=== PATIENT | male | born 1995 | race Caucasian/White ===

== ENCOUNTER 2025-10-13 01:08 | Emergency (ER) | payer MEDICAID, SELFPAY ==
[2025-10-13 01:10] VITALS: BMI 23.6
[2025-10-13 01:17] VITALS: BP 146/88; PULSE 109; RESP 20; TEMP 36.8; O2SAT 95
--- NOTE | 2025-10-13 01:26 | XR_ITS ---
EXAMINATION: PA chest single view TECHNIQUE: Upright PA chest single view Date and time: October 13, 2025, 0137 hours INDICATIONS: Coughing 2 weeks. FINDINGS: Normal heart size. Lungs are clear. Osseous structures are intact. IMPRESSION: No active disease
--- NOTE | 2025-10-13 01:27 | PD.EDEPIST ---
ED Epistaxis RME/HPI General Chief complaint: Headache Stated complaint: HEAD PRESSURE, NASAL MUSUC/BLOOD, BLURRY VISION Time Seen by Provider: 10/13/25 01:27 Arrival date/time: 10/13/25 01:08 RME / HPI RME / HPI Narrative: 30-year-old male who smokes cigarettes presents to the ER complaining of left-sided sinus pain as well as nasal congestion, nasal discharge including green mucus and intermittent scant blood when he blows his nose really hard which has been ongoing for the past 2 weeks. Denies any nausea, vomiting, shortness of breath, chest pain, hemoptysis, fever. Related Data Previous Rx's ?Medication ?Instructions ?Recorded cephalexin 500 mg capsule (Keflex) 500 mg PO BID #14 caps 11/12/19 ibuprofen 400 mg tablet 400 mg PO Q6H #30 tabs 11/12/19 clindamycin HCl 150 mg capsule 150 mg PO TID #21 caps 04/27/20 ibuprofen 600 mg tablet 600 mg PO Q8H PRN fever or pain 04/27/20 #30 tabs sulfamethoxazole 800 1 tab PO BID #14 tabs 04/27/20 mg-trimethoprim 160 mg tablet (Bactrim DS) ibuprofen 800 mg tablet 800 mg PO TID PRN pain #30 tabs 05/18/22 albuterol sulfate 90 mcg/actuation 180 mcg inhalation Q6H PRN 12/02/23 breath activated powder shortness of breath or wheezing #1 inhaler,sensor (Proair Digihaler) ea prednisone 50 mg tablet 50 mg PO QDAY #7 tabs 12/02/23 clotrimazole 1 % topical cream 1 applic topical BID #15 grams 05/15/24 Allergies Allergy/AdvReac Type Severity Reaction Status Date / Time No Known Allergies Allergy Verified 10/13/25 01:09 ED Exam Narrative Physical exam: Constitutional: Patient alert and oriented. Well appearing. No acute distress. Not toxic appearing. Head: Normocephalic, atraumatic. Eyes: Periorbital regions bilaterally normal to inspection. Conjunctiva clear bilaterally. Sclera anicteric bilaterally. Pupils equal, round, reactive to light bilaterally. Extraocular movements intact bilaterally. Ears: External ears normal to inspection bilaterally. No mastoid tenderness bilaterally. EAC without edema or exudate bilaterally. TMs without erythema or bulging. Nose: Bilateral intranasal mucosa with erythema. Positive tenderness to palpation to left maxillary sinus. Mouth/Throat: Mucous membranes moist. No stridor or muffled voice. Uvula midline. Rise and fall of soft palate normal. No tonsillar edema or exudate. No peritonsillar fullness. No trismus. Handling secretions without difficulty. Airway widely patent. Neck: Supple. Trachea midline. No JVD. No nuchal rigidity. No midline tenderness or step-offs. Normal range of motion. No anterior cervical lymphadenopathy. Respiratory: Normal effort. No accessory muscle use or respiratory distress. Lungs clear to auscultation bilaterally without rhonchi, wheezes, or crackles. Cardiovascular: RRR. Normal S1/S2. No murmurs or rubs. Radial pulses intact bilaterally. Abdomen: Soft. Non-distended. Non-tender throughout. No pulsatile mass. No guarding or rebound. Negative Metz?s sign. Negative McBurney?s point tenderness. Negative Rovsing?s. Back: No midline tenderness or step-offs. No CVA tenderness to palpation bilaterally. Upper Extremities: No gross deformities. Lower Extremities: No gross deformities. No edema or calf tenderness. Neuro: Speech normal. No gross motor or sensory deficits to upper or lower extremities bilaterally. GCS 15. CN II?XII grossly intact. Skin: Warm, dry, normal color. Psych: Normal affect. Cooperative. Normal insight. Course Quality Measures none Orders Category Date Time Status XR chest 1V portable Stat Exams 10/13/25 01:26 Taken CBC [CBC] Stat Lab 10/13/25 01:33 Completed CMP [Comprehensive Metabolic Panel] Stat Lab 10/13/25 01:33 Completed Acetaminophen Tab [Tylenol Tab] Med 10/13/25 01:27 Discontinued 650 mg PO X1 ONE Ibuprofen Tab [Motrin Tab] Med 10/13/25 01:27 Discontinued 600 mg PO X1 ONE Vital Signs Vital signs: Vital Signs Temperature 98.2 F 10/13/25 01:17 Pulse Rate 109 H 10/13/25 01:17 Respiratory Rate 20 10/13/25 01:17 Blood Pressure 146/88 H 10/13/25 01:17 Pulse Oximetry (%) 95 10/13/25 01:17 Oxygen Delivery Method Room Air 10/13/25 01:17 Epistaxis MDM Narrative MDM Narrative:: MDM Suspect: viral URI complicated by acute bacterial rhinosinusitis and self resolved anterior nasal epistaxis No signs of active epistaxis on clinical evaluation without signs of additional focal bacterial infection indicating tx, doubt [employer]/parapharyngeal abscess/epiglottis given lack of mass effect in OP cavity (uvula midline, no muffled voice/stridor/tripoding/drooling, airway widely patent, tolerating secretions and PO without difficulty) No meningeal signs, nuchal rigidity, AMS, focal neuro signs, seizure to suggest meningitis or acute D[employer] PERSON infection Pt eloped after obtaining CXR and labs prior to re-evaluation Patient data External records reviewed:: [facility] previous records Clinical information provided by:: patient Social determinants that could affect healthcare access:: none Patient has the following chronic illnesses:: None How is presenting disease/condition affected by chronic disease/condition?: no chronic disease Evaluation data The following diagnostics were reviewed and interpreted by me:: other (specify) Lab and/or radiology exams considered but not ordered:: Additional Labs and radiology considered, but not ordered as they were not clinically indicated at this time. Interpretation Summary: White blood cell count 13.5 which is mildly elevated, hemoglobin minimally low at 13.1 with hematocrit minimally low at 39.1 remainder of lab work without severe metabolic or electrolyte abnormality Chest x-ray interpreted by me without acute cardiopulmonary abnormality pending official radiology read Medications / Prescriptions Medications or Prescriptions considered but not ordered:: I ordered medications based on the patient?s clinical needs and assessment, as documented in the chart. For medications not prescribed, they were not indicated for the patient's current condition, and I determined they were unnecessary at this time to avoid potential risks or complications. Medication administrations:: Medication Administration History Discontinued Medications Acetaminophen (Acetaminophen 325 Mg Tablet) 650 mg PO X1 ONE Stop: 10/13/25 01:28 Last Admin: 10/13/25 01:43 Dose: 650 mg Documented By: CLOTILDE Ibuprofen (Ibuprofen Tab 600 Mg Tablet) 600 mg PO X1 ONE Stop: 10/13/25 01:28 Last Admin: 10/13/25 01:43 Dose: 600 mg Documented By: CLOTILDE as noted Consultations Consultation(s) initiated? (list below): No Diagnosis Epistaxis Differential Diagnosis: anterior epistaxis Most likely diagnosis given after review of the tests above:: Sinusitis Admission Indicated Admission indicated?: not indicated Admission Request Was there a request for admission?: No Disposition Plan Disposition Plan: other (specify) Discharge Plan Plan Patient Disposition: Elopement Patient condition on transfer: Stable Prescriptions/Referrals Prescriptions/Med Rec: No Action cephalexin [Keflex] 500 mg capsule 500 mg PO BID Qty: 14 0RF ibuprofen 400 mg tablet 400 mg PO Q6H Qty: 30 0RF clindamycin HCl 150 mg capsule 150 mg PO TID Qty: 21 0RF sulfamethoxazole-trimethoprim [Bactrim DS] 800-160 mg tablet 1 tab PO BID Qty: 14 0RF ibuprofen 600 mg tablet 600 mg PO Q8H PRN (Reason: fever or pain) Qty: 30 0RF ibuprofen 800 mg tablet 800 mg PO TID PRN (Reason: pain) Qty: 30 0RF clotrimazole 1 % cream 1 applic topical BID Qty: 15 0RF Proair Digihaler 90 mcg/actuation aero powdr breath act w/sensor 180 mcg inhalation Q6H PRN (Reason: shortness of breath or wheezing) Qty: 1 0RF prednisone 50 mg tablet 50 mg PO QDAY Qty: 7 0RF Referrals: No Primary/Family,Physician [Primary Care Provider] - In 1 week Problem List Clinical Impression: Sinusitis, Epistaxis Patient/Caregiver Discharge Instructions Print Language: Luxembourger
[2025-10-13] MEDS: ACETAMINOPHEN 325 MG TABLET 650 MG PO (01:43)
[2025-10-13] MEDS: IBUPROFEN TAB 600 MG TABLET PO (01:43)
[2025-10-13 01:47] LABS: Basophils # (Auto) 0.0 Thou/mm3 (0.0-0.2); Basophils % (Auto) 0 % (0-2.5); Eosinophils # (Auto) 0.2 Thou/mm3 (0.0-0.5); Eosinophils % (Auto) 2 % (0-10); Hematocrit 39.1 % (41.0-53.0); Hemoglobin 13.1 g/dL (13.5-16.0); Immature Granulocytes Auto 0.04 Thou/mm3 (0.00-0.00); Lymphocytes # (Auto) 3.0 Thou/mm3 (1.0-4.8); Lymphocytes % (Auto) 22 % (10-50); Mean Corpuscular HGB Conc 33.5 g/dl (31.0-37.0); Mean Corpuscular Hemoglobin 29.8 pg (25.0-35.0); Mean Corpuscular Volume 89 fL (80-100); Monocytes # (Auto) 1.3 Thou/mm3 (0.0-0.8); Monocytes % (Auto) 10 % (0-12); Neutrophils # (Auto) 8.9 Thou/mm3 (1.8-7.7); Neutrophils % (Auto) 66 % (37-80); Nucleated Red Blood Cell # 0.00 Thou/mm3 (0.00-0.00); Nucleated Red Blood Cell % 0 /100 WBC (0); Platelet Count 268 Thou/mm3 (140-440); RDW Standard Deviation 45.7 fL (35.1-43.9); Red Blood Count 4.39 Miln/mm3 (4.50-5.90); White Blood Count 13.5 Thou/mm3 (3.8-10.6)
--- NOTE | 2025-10-13 02:01 | PC.NURSE ---
PATIENT WALKED OUT OF ED LOBBY AT 0151, PER SECURITY STAFF PATIENT CONTINUED WALKING DOWN THE STREET.
[2025-10-13 02:20] LABS: Alanine Aminotransferase 8 U/L (10-49); Albumin, Serum 4.7 gm/dL (3.5-5.0); Albumin/Globulin Ratio 1.8 (1.2-2.2); Alkaline Phosphatase 98 U/L (46-116); Anion Gap 10 (7-16); Aspartate Amino Transferase 11 U/L (0-34); BUN/Creatinine Ratio 6 Ratio (12-20); Bilirubin,Total 0.3 mg/dL (0.3-1.2); Blood Urea Nitrogen 7 mg/dL (9-23); Calcium 9.0 mg/dL (8.3-10.6); Calcium (Corrected) 9.0 mg/dL (8.5-10.1); Carbon Dioxide 30.1 mMol/L (20.0-31.0); Chloride 103 mMol/L (98-107); Creatinine (Component) 1.1 mg/dL (0.6-1.3); Estimated Creatinine Clearance 101.4 mL/min (>60); Globulin 2.6 gm/dL (2.3-3.5); Glucose 103 mg/dL (74-106); Osmolality,Calculated 282 (275-295); Potassium 3.4 mMol/L (3.4-5.1); Sodium 143 mMol/L (136-145); Total Protein 7.3 gm/dL (5.7-8.2); eGFR > 60 See Note
--- NOTE | 2025-10-13 02:40 | PC.NURSE ---
CALLED PATIENT IN THE LOBBY, RESTROOM, AND OUTSIDE, NO ANSWER RECEIVED FROM PATIENT.
--- NOTE | 2025-10-13 02:52 | PC.NURSE ---
CALLED PATIENT IN THE LOBBY AND OUTSIDE, NO ANSWER RECEIVED,
--- NOTE | 2025-10-13 03:07 | PC.NURSE ---
CALLED PATIENT IN THE LOBBY AND OUTSIDE, NO ANSWER RECEIVED.
== END 2025-10-13 03:09 | disposition left against medical advice (07) ==
PROVIDERS: Physician Assistant; Emergency Provider Emergency Medicine
DX: J32.9 Chronic sinusitis, unspecified (principal); R04.0 Epistaxis; F17.210 Nicotine dependence, cigarettes, uncomplicated
CPT/HCPCS: 36415; 71045; 80053; 85025; 99283; A9270